=== PATIENT | male | born 1985 | race Caucasian/White ===

== ENCOUNTER → 2024-12-18 | Outpatient (CLI) | payer MEDICAID ==
--- NOTE | 2024-12-18 09:23 | US ---
EXAMINATION TYPE: US abdomen complete DATE OF EXAM: 12/18/2024 COMPARISON: NONE CLINICAL INDICATION: Male, 39 years old with history of R10.11 RIGHT UPPER QUADRANT PAIN; Abdominal p ain with belching x 10 years, getting worse with nausea and vomiting x 4 months TECHNIQUE: Grayscale and color Doppler imaging of the abdomen was performed. FINDINGS: EXAM MEASUREMENTS: Liver Length: 15.7 cm Gallbladder Wall: 0.2 cm CBD: 0.3 cm, color Doppler imaging was utilized to isolate the common bile duct for measurement. Spleen: 11.7 x 5.4 x 5.7 cm Right Kidney: 12.2 x 6.0 x 6.5 cm Left Kidney: 12.6 x 7.1 x 5.1 cm ACCOUNTING ANALYST NOTES: Pancreas: wnl Liver: wnl, no dilated ducts, masses or cysts. Gallbladder: wnl Evidence for sonographic Pretty's sign: No CBD: wnl Spleen: wnl Right Kidney: wnl, No hydronephrosis, calculi or masses seen Left Kidney: wnl, No hydronephrosis, calculi or masses seen Upper IVC: wnl Abd Aorta: wnl The liver is homogenous. The intrahepatic portion of the IVC and proximal abdominal aorta are within normal limits. There is no evidence of cholelithiasis. Common bile duct is unremarkable. The visu alized portions of the pancreas are homogenous. The spleen is unremarkable. Kidneys are symmetric a nd free of hydronephrosis. No renal lesions are seen. IMPRESSION: No evidence for acute process. [facility], , 12/18/2024 9:21 AM
[2024-12-18 10:38] LABS: Appearance,Urine Clear (Clear); Bilirubin,Urine Negative (Negative); Blood,Urine Negative (Negative); Color,Urine Yellow (Yellow); Ketones,Urine Negative (Negative); Nitrite,Urine Negative (Negative); PH, Urine 5.5; Specific Gravity,Urine 1.021 (1.001-1.030); Urobilinogen,Urine 0.2 E.U./DL
[2024-12-18 10:43] LABS: Basophils # (A) 0.01 X 10*3/uL (0.00-0.10); Basophils % (A) 0.2 %; Eosinophils # (A) 0.05 X 10*3/uL (0.04-0.35); Eosinophils % (A) 0.8 %; HCT 45.3 % (39.6-50.0); HGB 15.4 g/dL (13.0-17.0); Lymphocytes # (A) 2.04 X 10*3/uL (0.90-5.00); Lymphocytes % (A) 33.6 %; MCH 29.8 pg (27.0-32.0); MCV 87.6 FL (80.0-97.0); Mean Platelet Volume 11.3 FL (9.5-12.2); Monocytes # (A) 0.62 X 10*3/uL (0.20-1.00); Monocytes % (A) 10.2 %; NRBC Per 100 WBC 0 X 10*3/uL (0.00-0.01); Neutrophils # (A) 3.33 X 10*3/uL (1.80-7.70); Neutrophils % (A) 54.9 %; Platelet Count 262 X 10*3/uL (140-440); RBC 5.17 X 10*6/uL (4.40-5.60); RDW 11.9 % (11.5-14.5); WBC 6.07 X 10*3/uL (4.50-10.00)
[2024-12-18 14:48] LABS: Gliadin AB IgA, Deaminated Negative (Negative); Gliadin AB IgA, Unit 4.4 U/mL; Gliadin AB IgG, Deaminated Negative (Negative); Gliadin AB IgG, Unit <0.4 U/mL
[2024-12-18 14:55] LABS: ALT 27 U/L (10-49); AST 29 U/L (14-35); Albumin 4.7 g/dL (3.8-4.9); Albumin/Globulin Ratio 1.34 Ratio (1.60-3.17); Alkaline Phosphatase 77 U/L (41-126); Amylase 63 U/L (23-121); BUN/Creat Ratio 15.67 Ratio (12.00-20.00); Blood Urea Nitrogen 14.1 mg/dL (9.0-27.0); Calcium 9.7 mg/dL (8.7-10.3); Chloride 104 mmol/L (96-109); Chol/HDL Ratio 6.49 Ratio; Globulin 3.5 g/dL (1.6-3.3); Glucose 89 mg/dL (70-110); LDL Cholesterol,Calculated 121.8 mg/dL (0.0-131.0); Lipase 40 U/L (14-60); Potassium 4.4 mmol/L (3.5-5.5); Sodium 146 mmol/L (135-145); Total Bilirubin 0.4 mg/dL (0.3-1.2); Total Protein 8.2 g/dL (6.2-8.2); Uric Acid 5.2 mg/dL (3.7-8.7)
[2024-12-18 16:07] LABS: Creatine Kinase 120 U/L (35-257); LDH 182 U/L (120-246); Magnesium 1.9 mg/dL (1.5-2.4)
== END | disposition home or self-care (01) ==
LOC: RADUSWWP 08:03
PROVIDERS: ATTEND Internal Medicine
DX: I10 Essential (primary) hypertension (principal); E78.2 Mixed hyperlipidemia; R10.11 Right upper quadrant pain; R11.2 Nausea with vomiting, unspecified
CPT/HCPCS: 76700; 80053; 80061; 81003; 82150; 82550; 83036; 83516; 83615; 83690; 83735; 84443; 84550; 85025